=== PATIENT | male | born 1960 | race Caucasian/White ===

== ENCOUNTER 2022-12-10 20:09 | Inpatient (IN) | payer MEDICAID ==
[~2022-12-10] VITALS: Ht 180.3 cm; Wt 65.0 kg
[~2022-12-10 20:09] MED LIST: ASPI-394 PO; BENA-19 PO; BUDE160A3 INH; HYDR-4833 PO; METO-158 PO; METR-344 PO; OXYC10TA44 PO
[2022-12-10 22:23] LABS: Eosinophils # (auto) 0.1 10 ^3/uL (0-0.8); Monocytes # (auto) 0.8 10 ^3/uL (0-1.3); Red Cell Distribution Width 13.8 % (11.8-14.3); White Blood Cell 7.1 10^3/uL (4.4-10.8)
[2022-12-10 22:24] LABS: Basophils # (auto) 0.1 10 ^3/uL (0-0.2); Basophils % (auto) 1.3 % (0.0-2.0); Eosinophils % (auto) 1.2 % (0.0-7.0); Hematocrit 22.3 % (41.0-53.0); Hemoglobin 7.4 g/dL (13.5-17.5); Lymphocytes # (auto) 1.2 10 ^3/uL (0.4-5.4); Lymphocytes % (auto) 17.7 % (10.0-50.0); Mean Corpuscular Hemoglobin 30.5 pg (28.0-32.0); Mean Corpuscular Hgb Conc. 33.2 g/dL (32.0-36.0); Mean Corpuscular Volume 91.8 fL (80.0-100.0); Monocytes % (auto) 11.6 % (0.0-12.0); Neutrophils # (auto) 4.8 10 ^3/uL (1.6-8.6); Neutrophils % (auto) 68.2 % (37.0-80.0); Red Blood Cells 2.42 10^6/uL (4.5-5.90)
[2022-12-10 22:50] LABS: Albumin 4.1 g/dL (3.2-4.8); Alkaline Phosphatase 79 U/L (46-116); Anion Gap 8.8 (5-15); Aspartate Aminotransferase 15 U/L (13-40); BUN/Creatinine Ratio 11.4 (10.0-20.0); Blood Urea Nitrogen 12 mg/dL (9-23); Calcium 10.7 mg/dL (8.5-10.1); Carbon Dioxide 27.2 mmol/L (20-30); Chloride 101 mmol/L (98-107); Glucose 72 mg/dL (74-106); Potassium 3.6 mmol/L (3.5-5.1); Sodium 137 mmol/L (136-145)
[2022-12-10 22:51] LABS: Bilirubin, Total 0.5 mg/dL (0.2-1.0)
[2022-12-10 22:52] LABS: Alanine Aminotransferase 9 U/L (7-40)
[2022-12-11] MEDS ORDERED: IOHEXOL 300 MG/ML 100ML BOTTLE IJ ONE (02:45)
[2022-12-11] MEDS ORDERED: D5W/LACTATED RINGERS 1,000 ML IV ONE (06:45)
[2022-12-11] MEDS ORDERED: DEXTROSE (50%) 50ML SYRG IV ONE (06:45)
[2022-12-11] MEDS ORDERED: ALBUMIN 25% 100 ML IV ONE (06:45)
[2022-12-11] MEDS ORDERED: SODIUM CHLORIDE 0.9% 1,000 ML IV ONE (06:45)
[2022-12-11] MEDS ORDERED: DEXTROSE (50%) 50ML SYRG IV PRN (07:45)
[2022-12-11] MEDS ORDERED: DOCUSATE SOD 100 MG CAP PO PRN (07:45)
[2022-12-11] MEDS ORDERED: ACETAMINOPHEN 325 MG TAB PO PRN (07:45)
[2022-12-11] MEDS ORDERED: D5W/SOD CHLO 0.9% 1,000 ML IV ONE (07:45)
[2022-12-11] MEDS ORDERED: ONDANSETRON HCL 4 MG/2 ML VIAL IV PRN (07:45)
[2022-12-11] MEDS ORDERED: NITROGLYCERIN 0.4 MG SL TAB SL PRN (08:30)
[2022-12-11 10:05] LABS: Albumin 4.3 g/dL (3.2-4.8); Alkaline Phosphatase 73 U/L (46-116); Aspartate Aminotransferase 13 U/L (13-40); BUN/Creatinine Ratio 10.2 (10.0-20.0); Bilirubin, Total 0.5 mg/dL (0.2-1.0); Blood Urea Nitrogen 11 mg/dL (9-23); Calcium 10.7 mg/dL (8.5-10.1); Chloride 103 mmol/L (98-107); Glucose 100 mg/dL (74-106); Potassium 4.2 mmol/L (3.5-5.1); Sodium 138 mmol/L (136-145)
[2022-12-11 10:13] LABS: Alanine Aminotransferase < 9 U/L (7-40)
[2022-12-11] MEDS: InsuLIN REG 1unit/0.01ml Soln (100units/ml) SC SCH ×3 (11:30→22:00)
[2022-12-11] MEDS: ACCU-CHEK COMFORT CURVE STRIP VI SCH ×3 (11:49→22:00)
[2022-12-11 13:19] LABS: Eosinophils # (auto) 0.1 10 ^3/uL (0-0.8); Monocytes # (auto) 0.8 10 ^3/uL (0-1.3); Neutrophils # (auto) 3.3 10 ^3/uL (1.6-8.6); White Blood Cell 5.3 10^3/uL (4.4-10.8)
[2022-12-11 13:21] LABS: Basophils # (auto) 0 10 ^3/uL (0-0.2); Basophils % (auto) 0.6 % (0.0-2.0); Eosinophils % (auto) 1.8 % (0.0-7.0); Hematocrit 18.4 % (41.0-53.0); Lymphocytes # (auto) 1.1 10 ^3/uL (0.4-5.4); Lymphocytes % (auto) 20.6 % (10.0-50.0); Mean Corpuscular Hgb Conc. 32.5 g/dL (32.0-36.0); Mean Corpuscular Volume 92.6 fL (80.0-100.0); Monocytes % (auto) 14.4 % (0.0-12.0); Neutrophils % (auto) 62.6 % (37.0-80.0); Nucleated Red Blood Cells % 0.1 %; Red Blood Cells 1.99 10^6/uL (4.5-5.90); Red Cell Distribution Width 13.9 % (11.8-14.3)
[2022-12-11 14:00] LABS: Platelet Estimate Adequate
[2022-12-11] MEDS ORDERED: HYDROcodone-ACET 10/325MG TAB PO ONE (14:00)
[2022-12-11 19:40] VITALS: PULSE 92; RESP 16; O2SAT 100
[2022-12-11 20:20] VITALS: BP 111/33; PULSE 93; RESP 15; TEMP 98.3
[2022-12-11 20:35] VITALS: BP 113/33; PULSE 90; RESP 14; TEMP 98.4
[2022-12-11 22:45] VITALS: BP 109/46; PULSE 94; RESP 19; TEMP 98.6
[2022-12-11 23:50] VITALS: PULSE 94; RESP 21; O2SAT 100
[2022-12-12] VITALS (35 sets, daily range): BP systolic 97–129; BP diastolic 27–95; PULSE 71–165; RESP 11–35; TEMP 97.8–98.8; O2SAT 89–100
[2022-12-12] MEDS ORDERED: IPRATROPIUM BROM 0.5 MG/2.5ML INH SOL NEB ONE
[2022-12-12] MEDS ORDERED: ALBUTEROL SULF 2.5 MG/0.5ML(0.5%) NEB SOLN NEB ONE
[2022-12-12] MEDS ORDERED: METOPROLOL TARTRATE 25 MG TAB PO ONE (02:00)
[2022-12-12] MEDS: InsuLIN REG 1unit/0.01ml Soln (100units/ml) SC SCH ×5 (06:29→22:00)
[2022-12-12] MEDS: ACCU-CHEK COMFORT CURVE STRIP VI SCH ×5 (06:30→22:10)
[2022-12-12 06:47] LABS: Basophils # (auto) 0.1 10 ^3/uL (0-0.2); Basophils % (auto) 1.2 % (0.0-2.0); Eosinophils # (auto) 0.2 10 ^3/uL (0-0.8); Eosinophils % (auto) 3.2 % (0.0-7.0); Hematocrit 25.4 % (41.0-53.0); Hemoglobin 8.5 g/dL (13.5-17.5); Lymphocytes # (auto) 0.9 10 ^3/uL (0.4-5.4); Lymphocytes % (auto) 17.3 % (10.0-50.0); Mean Corpuscular Hemoglobin 30.9 pg (28.0-32.0); Mean Corpuscular Hgb Conc. 33.7 g/dL (32.0-36.0); Mean Corpuscular Volume 91.8 fL (80.0-100.0); Monocytes # (auto) 0.7 10 ^3/uL (0-1.3); Monocytes % (auto) 12.7 % (0.0-12.0); Neutrophils # (auto) 3.6 10 ^3/uL (1.6-8.6); Neutrophils % (auto) 65.6 % (37.0-80.0); Nucleated Red Blood Cells % 0.1 %; Red Blood Cells 2.76 10^6/uL (4.5-5.90); Red Cell Distribution Width 13.7 % (11.8-14.3); White Blood Cell 5.5 10^3/uL (4.4-10.8)
[2022-12-12 07:01] LABS: % Iron Saturation 25.4 % (20-55)
[2022-12-12 07:02] LABS: Albumin 3.8 g/dL (3.2-4.8); Alkaline Phosphatase 65 U/L (46-116); Anion Gap 6.8 (5-15); Aspartate Aminotransferase 9 U/L (13-40); BUN/Creatinine Ratio 8.3 (10.0-20.0); Blood Urea Nitrogen 8 mg/dL (9-23); Calcium 10.5 mg/dL (8.7-10.4); Carbon Dioxide 28.2 mmol/L (20-30); Chloride 106 mmol/L (98-107); Glucose 77 mg/dL (74-106); Potassium 3.7 mmol/L (3.5-5.1); Sodium 141 mmol/L (136-145)
[2022-12-12 07:03] LABS: Alanine Aminotransferase < 9 U/L (7-40); Bilirubin, Total 0.9 mg/dL (0.2-1.0); Total Protein 6.2 g/dL (5.7-8.2)
[2022-12-12 07:14] LABS: Ferritin 719.2 ng/mL (22-322)
[2022-12-12 07:30] LABS: Folate (Folic Acid) 10.6 ng/mL (>5.38)
[2022-12-12] MEDS: PANTOPRAZOLE 40 MG/10 ML VIAL INJ IV SCH (08:50)
[2022-12-12] MEDS ORDERED: METOPROLOL TARTRATE 25 MG TAB PO SCH (10:00)
[2022-12-12] MEDS: ALBUTEROL SULF 2.5 MG/0.5ML(0.5%) NEB SOLN NEB PRN (11:49)
[2022-12-12] MEDS ORDERED: LABETALOL HCL 5 MG/ML 4ML SYRINGE IV ONE (12:45)
[2022-12-12] MEDS ORDERED: ALPRAZolam 0.5 MG TAB PO PRN (12:45)
[2022-12-12] MEDS ORDERED: METOPROLOL TARTRATE 1MG/1ML-5ML VIAL IV ONE (13:15)
[2022-12-12] MEDS: HYDROcodone-ACET 5/325MG TAB PO PRN ×2 (14:21→18:34)
[2022-12-12] MEDS: dilTIAZem 125mg/125ml BAG KIT 125 ML IV SCH (14:51)
[2022-12-12] MEDS: POTASSIUM CHL 20MEQ/100ML 100 ML IV SCH ×2 (17:48→20:13)
[2022-12-12] MEDS ORDERED: HYDROcodone-ACET 10/325MG TAB PO PRN (19:00)
[2022-12-12 19:43] LABS: Magnesium 1.6 mg/dL (1.6-2.6)
[2022-12-12] MEDS: ATORVASTATIN 20 MG TAB PO SCH (22:00)
[2022-12-12] MEDS: METOPROLOL TARTRATE 50 MG TAB PO SCH (22:08)
[2022-12-13] VITALS (30 sets, daily range): BP systolic 98–111; BP diastolic 35–52; PULSE 62–86; RESP 13–31; TEMP 97–98.5; O2SAT 92–100
[2022-12-13] MEDS: dilTIAZem 125mg/125ml BAG KIT 125 ML IV SCH (03:10)
[2022-12-13] MEDS: MORPHINE SULFATE INJ 2 MG/ml SYRG IV PRN ×4 (03:45→21:41)
[2022-12-13] MEDS: ALBUTEROL SULF 2.5 MG/0.5ML(0.5%) NEB SOLN NEB PRN ×3 (04:24→21:01)
[2022-12-13] MEDS: InsuLIN REG 1unit/0.01ml Soln (100units/ml) SC SCH ×4 (06:37→21:47)
[2022-12-13] MEDS: ACCU-CHEK COMFORT CURVE STRIP VI SCH ×4 (06:37→21:42)
[2022-12-13] MEDS: PANTOPRAZOLE 40 MG/10 ML VIAL INJ IV SCH (10:08)
[2022-12-13] MEDS: METOPROLOL TARTRATE 50 MG TAB PO SCH ×2 (10:09→21:39)
[2022-12-13] MEDS: POTASSIUM CHL 20 Meq TABLET PO SCH (11:15)
[2022-12-13] MEDS: FUROSEMIDE 20 MG/2 ML VIAL IV SCH (11:15)
[2022-12-13] MEDS: methIMAzole 5 MG TAB PO SCH ×2 (14:00→21:41)
[2022-12-13 18:50] LABS: Basophils # (auto) 0 10 ^3/uL (0-0.2); Basophils % (auto) 0.5 % (0.0-2.0); Eosinophils # (auto) 0.3 10 ^3/uL (0-0.8); Eosinophils % (auto) 4.3 % (0.0-7.0); Hematocrit 22.6 % (41.0-53.0); Hemoglobin 7.6 g/dL (13.5-17.5); Lymphocytes # (auto) 1.4 10 ^3/uL (0.4-5.4); Lymphocytes % (auto) 17.3 % (10.0-50.0); Mean Corpuscular Hemoglobin 30.5 pg (28.0-32.0); Mean Corpuscular Hgb Conc. 33.5 g/dL (32.0-36.0); Mean Corpuscular Volume 91.2 fL (80.0-100.0); Monocytes % (auto) 12.4 % (0.0-12.0); Neutrophils # (auto) 5.2 10 ^3/uL (1.6-8.6); Neutrophils % (auto) 65.5 % (37.0-80.0); Red Blood Cells 2.48 10^6/uL (4.5-5.90); Red Cell Distribution Width 13.6 % (11.8-14.3)
[2022-12-13 19:14] LABS: Albumin 3.4 g/dL (3.2-4.8); Alkaline Phosphatase 59 U/L (46-116); Anion Gap 3.4 (5-15); Aspartate Aminotransferase < 8 U/L (13-40); BUN/Creatinine Ratio 10.2 (10.0-20.0); Blood Urea Nitrogen 13 mg/dL (9-23); Carbon Dioxide 30.6 mmol/L (20-30); Chloride 104 mmol/L (98-107); Glucose 121 mg/dL (74-106); Magnesium 1.4 mg/dL (1.6-2.6); Potassium 4.4 mmol/L (3.5-5.1); Sodium 138 mmol/L (136-145)
[2022-12-13 19:16] LABS: Alanine Aminotransferase < 9 U/L (7-40); Bilirubin, Total 0.3 mg/dL (0.2-1.0); Total Protein 5.8 g/dL (5.7-8.2)
[2022-12-13] MEDS: ATORVASTATIN 20 MG TAB PO SCH (21:47)
[2022-12-13] MEDS: MAGNESIUM SULFATE 1GM/100ML 100 ML IV SCH ×2 (22:33→23:34)
[2022-12-14] VITALS (12 sets, daily range): BP systolic 105–125; BP diastolic 32–45; PULSE 71–88; RESP 17–24; TEMP 97.8–98.2; O2SAT 94–100
[2022-12-14] MEDS: MORPHINE SULFATE INJ 2 MG/ml SYRG IV PRN ×3 (05:03→18:28)
[2022-12-14 05:53] LABS: Basophils # (auto) 0 10 ^3/uL (0-0.2); Basophils % (auto) 0.4 % (0.0-2.0); Eosinophils # (auto) 0.3 10 ^3/uL (0-0.8); Eosinophils % (auto) 5.8 % (0.0-7.0); Hematocrit 25.2 % (41.0-53.0); Hemoglobin 8.4 g/dL (13.5-17.5); Lymphocytes # (auto) 1.1 10 ^3/uL (0.4-5.4); Lymphocytes % (auto) 19.4 % (10.0-50.0); Mean Corpuscular Hemoglobin 30.3 pg (28.0-32.0); Mean Corpuscular Hgb Conc. 33.3 g/dL (32.0-36.0); Mean Corpuscular Volume 91.1 fL (80.0-100.0); Monocytes # (auto) 0.7 10 ^3/uL (0-1.3); Monocytes % (auto) 12.9 % (0.0-12.0); Neutrophils # (auto) 3.6 10 ^3/uL (1.6-8.6); Neutrophils % (auto) 61.5 % (37.0-80.0); Nucleated Red Blood Cells % 0.1 %; Red Blood Cells 2.77 10^6/uL (4.5-5.90); Red Cell Distribution Width 13.8 % (11.8-14.3); White Blood Cell 5.8 10^3/uL (4.4-10.8)
[2022-12-14 06:09] LABS: Albumin 3.5 g/dL (3.2-4.8); Alkaline Phosphatase 58 U/L (46-116); Anion Gap 3.9 (5-15); Aspartate Aminotransferase < 8 U/L (13-40); Bilirubin, Total 0.4 mg/dL (0.2-1.0); Blood Urea Nitrogen 14 mg/dL (9-23); Calcium 10.3 mg/dL (8.7-10.4); Carbon Dioxide 31.1 mmol/L (20-30); Chloride 104 mmol/L (98-107); Glucose 96 mg/dL (74-106); Magnesium 2.1 mg/dL (1.6-2.6); Potassium 4.1 mmol/L (3.5-5.1); Sodium 139 mmol/L (136-145); Total Protein 5.8 g/dL (5.7-8.2)
[2022-12-14] MEDS: methIMAzole 5 MG TAB PO SCH ×3 (06:18→21:55)
[2022-12-14] MEDS: ACCU-CHEK COMFORT CURVE STRIP VI SCH ×4 (06:18→22:00)
[2022-12-14] MEDS: InsuLIN REG 1unit/0.01ml Soln (100units/ml) SC SCH ×4 (06:22→22:00)
[2022-12-14 07:19] LABS: Alanine Aminotransferase < 9 U/L (7-40)
[2022-12-14 08:17] LABS: BUN/Creatinine Ratio 11.8 (10.0-20.0)
[2022-12-14] MEDS: PANTOPRAZOLE 40 MG/10 ML VIAL INJ IV SCH (09:56)
[2022-12-14] MEDS: FUROSEMIDE 20 MG/2 ML VIAL IV SCH (09:57)
[2022-12-14] MEDS: POTASSIUM CHL 20 Meq TABLET PO SCH (09:57)
[2022-12-14] MEDS: METOPROLOL TARTRATE 50 MG TAB PO SCH ×2 (09:57→21:59)
[2022-12-14] MEDS: ALBUTEROL SULF 2.5 MG/0.5ML(0.5%) NEB SOLN NEB PRN (10:48)
[2022-12-14] MEDS: ATORVASTATIN 20 MG TAB PO SCH ×2 (21:55→22:00)
[2022-12-15] VITALS (12 sets, daily range): BP systolic 108–119; BP diastolic 43–51; PULSE 67–82; RESP 17–20; TEMP 97.6–98.4; O2SAT 98–100
[2022-12-15] MEDS: MORPHINE SULFATE INJ 2 MG/ml SYRG IV PRN ×4 (00:30→22:55)
[2022-12-15] MEDS: methIMAzole 5 MG TAB PO SCH ×3 (05:40→22:51)
[2022-12-15 05:47] LABS: Basophils # (auto) 0 10 ^3/uL (0-0.2); Basophils % (auto) 0.7 % (0.0-2.0); Eosinophils # (auto) 0.4 10 ^3/uL (0-0.8); Eosinophils % (auto) 6.2 % (0.0-7.0); Hematocrit 26.5 % (41.0-53.0); Hemoglobin 8.6 g/dL (13.5-17.5); Lymphocytes # (auto) 1.2 10 ^3/uL (0.4-5.4); Lymphocytes % (auto) 18.8 % (10.0-50.0); Mean Corpuscular Hemoglobin 30.5 pg (28.0-32.0); Mean Corpuscular Hgb Conc. 32.4 g/dL (32.0-36.0); Mean Corpuscular Volume 93.9 fL (80.0-100.0); Monocytes # (auto) 0.9 10 ^3/uL (0-1.3); Monocytes % (auto) 13.1 % (0.0-12.0); Neutrophils % (auto) 61.2 % (37.0-80.0); Nucleated Red Blood Cells % 0.2 %; Red Blood Cells 2.82 10^6/uL (4.5-5.90); Red Cell Distribution Width 13.9 % (11.8-14.3); White Blood Cell 6.5 10^3/uL (4.4-10.8)
[2022-12-15 05:56] LABS: Chloride 103 mmol/L (98-107); Potassium 4.5 mmol/L (3.5-5.1); Sodium 139 mmol/L (136-145)
[2022-12-15 05:57] LABS: Anion Gap 5.6 (5-15); Carbon Dioxide 30.4 mmol/L (20-30)
[2022-12-15 05:58] LABS: Calcium 10.1 mg/dL (8.5-10.1)
[2022-12-15 06:02] LABS: Glucose 88 mg/dL (74-106)
[2022-12-15 06:03] LABS: BUN/Creatinine Ratio 13.3 (10.0-20.0); Blood Urea Nitrogen 16 mg/dL (9-23); INR 1.12 (0.9-1.15); Partial Thromboplastin Time 23.4 SEC (24.5-34.5); Prothrombin Time 11.7 sec (9.3-11.8)
[2022-12-15] MEDS: InsuLIN REG 1unit/0.01ml Soln (100units/ml) SC SCH ×4 (06:29→22:00)
[2022-12-15] MEDS: ACCU-CHEK COMFORT CURVE STRIP VI SCH ×4 (06:29→22:00)
[2022-12-15] MEDS: ALBUTEROL SULF 2.5 MG/0.5ML(0.5%) NEB SOLN NEB PRN (09:00)
[2022-12-15] MEDS: PANTOPRAZOLE 40 MG/10 ML VIAL INJ IV SCH (09:31)
[2022-12-15] MEDS: POTASSIUM CHL 20 Meq TABLET PO SCH (09:31)
[2022-12-15] MEDS: METOPROLOL TARTRATE 50 MG TAB PO SCH ×2 (09:31→22:51)
[2022-12-15] MEDS: FUROSEMIDE 20 MG/2 ML VIAL IV SCH (09:32)
[2022-12-15] MEDS: HYDROcodone-ACET 10/325MG TAB PO PRN ×2 (09:33→11:09)
[2022-12-15] MEDS ORDERED: MIDAZOLAM HCL 2MG/2ML 2ml VIAL (1mg/ml) ONE (14:44)
[2022-12-15] MEDS ORDERED: fentaNYL CITRATE 100 MCG/2 ML VL ONE (14:44)
[2022-12-15] MEDS ORDERED: PROPOFOL 10 MG/ML 20 ML IV ONE (15:01)
[2022-12-15] MEDS ORDERED: ONDANSETRON HCL 4 MG/2 ML VIAL ONE (15:01)
[2022-12-15] MEDS: ATORVASTATIN 20 MG TAB PO SCH (22:52)
[2022-12-16 01:06] LABS: AFP Serum Tumor Marker <1.8 ng/mL (0.0-8.4); PSA Free 0.23 ng/mL; Prostate Specific Antigen 1.2 ng/mL (0.0-4.0)
[2022-12-16 05:00] VITALS: BP 118/47; PULSE 69; RESP 18; TEMP 98; O2SAT 100
[2022-12-16] MEDS: methIMAzole 5 MG TAB PO SCH (05:47)
[2022-12-16] MEDS: MORPHINE SULFATE INJ 2 MG/ml SYRG IV PRN (05:48)
[2022-12-16] MEDS: InsuLIN REG 1unit/0.01ml Soln (100units/ml) SC SCH ×2 (06:06→11:30)
[2022-12-16] MEDS: ACCU-CHEK COMFORT CURVE STRIP VI SCH ×2 (06:06→11:30)
[2022-12-16 06:49] LABS: Chloride 100 mmol/L (98-107); Potassium 4.5 mmol/L (3.5-5.1); Sodium 138 mmol/L (136-145)
[2022-12-16 06:50] LABS: Anion Gap 4.1 (5-15); Calcium 10.2 mg/dL (8.7-10.4); Carbon Dioxide 33.9 mmol/L (20-30)
[2022-12-16 06:54] LABS: Basophils # (auto) 0 10 ^3/uL (0-0.2); Basophils % (auto) 0.6 % (0.0-2.0); Eosinophils # (auto) 0.4 10 ^3/uL (0-0.8); Eosinophils % (auto) 6.2 % (0.0-7.0); Hematocrit 27.2 % (41.0-53.0); Lymphocytes # (auto) 1.2 10 ^3/uL (0.4-5.4); Lymphocytes % (auto) 16.2 % (10.0-50.0); Mean Corpuscular Hemoglobin 30.3 pg (28.0-32.0); Mean Corpuscular Volume 91.9 fL (80.0-100.0); Monocytes % (auto) 14.2 % (0.0-12.0); Neutrophils # (auto) 4.5 10 ^3/uL (1.6-8.6); Neutrophils % (auto) 62.8 % (37.0-80.0); Red Blood Cells 2.96 10^6/uL (4.5-5.90); Red Cell Distribution Width 13.5 % (11.8-14.3); White Blood Cell 7.1 10^3/uL (4.4-10.8)
[2022-12-16 06:55] LABS: BUN/Creatinine Ratio 14.2 (10.0-20.0); Blood Urea Nitrogen 19 mg/dL (9-23); Glucose 103 mg/dL (74-106)
[2022-12-16 08:00] VITALS: PULSE 66; PULSE 80; RESP 18; O2SAT 98
[2022-12-16 09:20] VITALS: BP 114/54; PULSE 66; RESP 19; TEMP 98.6; O2SAT 98
[2022-12-16] MEDS ORDERED: METH-552 PO (09:30)
[2022-12-16] MEDS ORDERED: FER325T PO (09:34)
[2022-12-16] MEDS ORDERED: MULTTAB99 PO (09:41)
[2022-12-16 10:00] VITALS: O2SAT 98
[2022-12-16] MEDS: POTASSIUM CHL 20 Meq TABLET PO SCH (10:00)
[2022-12-16] MEDS: PANTOPRAZOLE 40 MG/10 ML VIAL INJ IV SCH (10:03)
[2022-12-16] MEDS: METOPROLOL TARTRATE 50 MG TAB PO SCH (10:04)
[2022-12-16 12:14] VITALS: BP 122/65; PULSE 66; RESP 18; TEMP 98.1; O2SAT 98
[2022-12-16 13:00] VITALS: BP 108/33; PULSE 57; RESP 17; TEMP 98.5; O2SAT 100
== END 2022-12-16 13:45 | disposition home or self-care (01) | DRG 663 ==
LOC: ER 20:09 → TELE 12-11 08:27 → TELE-EAST 12-11 20:49 → TELE-WESTW 12-11 21:26 → ICU WEST 12-12 16:51 → DOU IN ICU 12-13 08:48 → TELE-EAST 12-13 22:00
PROVIDERS: ADMIT Nurse Practitioner Family; ATTEND Internal Medicine Geriatric Medicine
PROC: 30233N1 Transfusion of Nonautologous Red Blood Cells into Peripheral Vein, Percutaneous Approach (ICD-10-PCS; principal; 2022-12-11)
PROC: 0DB98ZX Excision of Duodenum, Via Natural or Artificial Opening Endoscopic, Diagnostic (ICD-10-PCS; 2022-12-15)
PROC: 0DB68ZX Excision of Stomach, Via Natural or Artificial Opening Endoscopic, Diagnostic (ICD-10-PCS; 2022-12-15)
DX: D64.9 Anemia, unspecified (principal); J96.10 Chronic respiratory failure, unspecified whether with hypoxia or hypercapnia; I50.32 Chronic diastolic (congestive) heart failure; Z99.81 Dependence on supplemental oxygen; I48.20 Chronic atrial fibrillation, unspecified; E03.9 Hypothyroidism, unspecified; E05.90 Thyrotoxicosis, unspecified without thyrotoxic crisis or storm; E83.52 Hypercalcemia; E16.2 Hypoglycemia, unspecified; N18.9 Chronic kidney disease, unspecified; G89.4 Chronic pain syndrome; R60.0 Localized edema; E78.00 Pure hypercholesterolemia, unspecified; J44.9 Chronic obstructive pulmonary disease, unspecified; F41.9 Anxiety disorder, unspecified; K29.70 Gastritis, unspecified, without bleeding; K44.9 Diaphragmatic hernia without obstruction or gangrene; Z88.0 Allergy status to penicillin; Z88.1 Allergy status to other antibiotic agents; Z80.1 Family history of malignant neoplasm of trachea, bronchus and lung; Z68.20 Body mass index [BMI] 20.0-20.9, adult
CPT/HCPCS: 36415; 71045; 71260; 74177; 80048; 80053; 80061; 82105; 82270; 82378; 82607; 82728; 82746; 82962; 83036; 83540; 83550; 83735; 83880; 84154; 84443; 85025; 85610; 85730; 86301; 86850; 86900; 86901; 86920; 87081; 93005; 93306; 93970; 94640; 96361; 96374; C9113; G0378; J2250; J2405; J2704; J3480; J3490; P9047

== ENCOUNTER → 2023-06-14 | Outpatient (CLI) | payer MEDICAID ==
[~2023-06-14] MED LIST changes: +ALBUTEROL SULF 2.5 MG/0.5ML(0.5%) NEB SOLN ONE; +FER325T PO; +METH-552 PO; +MULTTAB99 PO
== END | disposition home or self-care (01) ==
LOC: XYW 09:15
PROVIDERS: ATTEND Internal Medicine Pulmonary Disease
DX: J44.9 Chronic obstructive pulmonary disease, unspecified (principal)
CPT/HCPCS: 94060; 94727; 94729

== ENCOUNTER 2023-10-26 17:59 | Inpatient (IN) | payer MEDICAID ==
[~2023-10-26] VITALS: Ht 180.3 cm; Wt 81.0 kg
[~2023-10-26 17:59] MED LIST changes: -ALBUTEROL SULF 2.5 MG/0.5ML(0.5%) NEB SOLN ONE; -BENA-19 PO; +BENA10TA90 PO
[2023-10-26 20:03] LABS: Basophils # (auto) 0 10 ^3/uL (0-0.2); Basophils % (auto) 0.6 % (0.0-2.0); Eosinophils # (auto) 0.1 10 ^3/uL (0-0.8); Eosinophils % (auto) 2.4 % (0.0-7.0); Hematocrit 32.5 % (41.0-53.0); Hemoglobin 10.7 g/dL (13.5-17.5); Lymphocytes # (auto) 1.3 10 ^3/uL (0.4-5.4); Lymphocytes % (auto) 24.2 % (10.0-50.0); Mean Corpuscular Hemoglobin 29.7 pg (28.0-32.0); Mean Corpuscular Hgb Conc. 32.8 g/dL (32.0-36.0); Mean Corpuscular Volume 90.7 fL (80.0-100.0); Monocytes # (auto) 0.7 10 ^3/uL (0-1.3); Monocytes % (auto) 13.9 % (0.0-12.0); Neutrophils # (auto) 3.1 10 ^3/uL (1.6-8.6); Neutrophils % (auto) 58.9 % (37.0-80.0); Nucleated Red Blood Cells % 0.1 %; Red Blood Cells 3.59 10^6/uL (4.5-5.90); Red Cell Distribution Width 13.5 % (11.8-14.3); White Blood Cell 5.3 10^3/uL (4.4-10.8)
[2023-10-26 20:33] LABS: Alanine Aminotransferase 22 U/L (7-40); Albumin 4.2 g/dL (3.2-4.8); Alkaline Phosphatase 102 U/L (46-116); Anion Gap 6 (5-15); Aspartate Aminotransferase 20 U/L (13-40); BUN/Creatinine Ratio 21.5 (10.0-20.0); Bilirubin, Total 0.4 mg/dL (0.2-1.0); Blood Urea Nitrogen 28 mg/dL (9-23); Calcium 10.3 mg/dL (8.5-10.1); Carbon Dioxide 27 mmol/L (20-30); Chloride 108 mmol/L (98-107); Glucose 95 mg/dL (74-106); Potassium 4.7 mmol/L (3.5-5.1); Sodium 141 mmol/L (136-145); Total Protein 6.3 g/dL (5.7-8.2)
[2023-10-26] MEDS: IPRATROPIUM BROM 0.5 MG/2.5ML INH SOL NEB ONE (21:33)
[2023-10-26] MEDS: ALBUTEROL SULF 2.5 MG/0.5ML(0.5%) NEB SOLN NEB ONE (21:33)
[2023-10-26] MEDS ORDERED: AZITHROMYCIN 500MG/ 250ML 250 ML IV ONE (22:30)
[2023-10-26] MEDS ORDERED: ACETAMINOPHEN 325 MG TAB PO PRN (22:30)
[2023-10-26] MEDS ORDERED: TEMAZEPAM 15 MG CAP PO PRN (22:30)
[2023-10-26] MEDS ORDERED: NITROGLYCERIN 0.4 MG SL TAB SL PRN (23:00)
[2023-10-26] MEDS: DexAMETHasone SOD PHOS 10MG/1ML VIAL INJ IM ONE (23:35)
[2023-10-26] MEDS: cefTRIAXone 1GM/50ML D5W 50 ML IV ONE (23:35)
[2023-10-27] VITALS (11 sets, daily range): BP systolic 113–134; BP diastolic 53–75; PULSE 20–160; RESP 16–22; TEMP 97.5–98.8; O2SAT 98–100
[2023-10-27] MEDS ORDERED: HYDR-4072 PO (03:27)
[2023-10-27] MEDS ORDERED: FLUT1AER3 IN (03:27)
[2023-10-27] MEDS ORDERED: CHOL20007 PO (03:27)
[2023-10-27] MEDS ORDERED: ALBU1NEB5 IN (03:27)
[2023-10-27] MEDS ORDERED: ALBU108A5 IN (03:27)
[2023-10-27] MEDS: AMIODARONE BOLUS KIT 100 ML IV ONE (04:18)
[2023-10-27] MEDS: dilTIAZem 25 MG/5 ML VIAL IV ONE ×2 (04:29→04:51)
[2023-10-27] MEDS: HYDROcodone-ACET 10/325MG TAB PO ONE (04:30)
[2023-10-27] MEDS: AMIODARONE 450mg/250ml AE 250 ML IV SCH ×3 (04:52→16:22)
[2023-10-27 04:57] LABS: Basophils # (auto) 0 10 ^3/uL (0-0.2); Basophils % (auto) 0.3 % (0.0-2.0); Eosinophils # (auto) 0 10 ^3/uL (0-0.8); Eosinophils % (auto) 0.3 % (0.0-7.0); Hematocrit 30.8 % (41.0-53.0); Hemoglobin 10.1 g/dL (13.5-17.5); Lymphocytes # (auto) 0.3 10 ^3/uL (0.4-5.4); Lymphocytes % (auto) 7.3 % (10.0-50.0); Mean Corpuscular Hemoglobin 29.7 pg (28.0-32.0); Mean Corpuscular Hgb Conc. 32.6 g/dL (32.0-36.0); Mean Corpuscular Volume 90.8 fL (80.0-100.0); Monocytes # (auto) 0.1 10 ^3/uL (0-1.3); Monocytes % (auto) 2.1 % (0.0-12.0); Neutrophils # (auto) 4.3 10 ^3/uL (1.6-8.6); Red Blood Cells 3.39 10^6/uL (4.5-5.90); Red Cell Distribution Width 13.4 % (11.8-14.3); White Blood Cell 4.8 10^3/uL (4.4-10.8)
[2023-10-27 05:13] LABS: Alanine Aminotransferase 22 U/L (7-40); Albumin 4.3 g/dL (3.2-4.8); Alkaline Phosphatase 100 U/L (46-116); Anion Gap 8 (5-15); Aspartate Aminotransferase 18 U/L (13-40); BUN/Creatinine Ratio 19.1 (10.0-20.0); Bilirubin, Total 0.6 mg/dL (0.2-1.0); Blood Urea Nitrogen 26 mg/dL (9-23); Calcium 10.5 mg/dL (8.5-10.1); Carbon Dioxide 26 mmol/L (20-30); Chloride 105 mmol/L (98-107); Glucose 161 mg/dL (74-106); Potassium 4.4 mmol/L (3.5-5.1); Sodium 139 mmol/L (136-145); Total Protein 6.8 g/dL (5.7-8.2)
[2023-10-27] MEDS: methylPREDNISolone SOD SUCC 40 MG/ML VL IV SCH ×2 (09:53→20:20)
[2023-10-27] MEDS ORDERED: AZITHROMYCIN 500MG/ 250ML 250 ML IV SCH (10:00)
[2023-10-27] MEDS: METOPROLOL TARTRATE 25 MG TAB PO SCH (10:01)
[2023-10-27] MEDS: ASPirin 81 mg TAB PO SCH (10:03)
[2023-10-27] MEDS ORDERED: AZITHROMYCIN 500MG/ 250ML 250 ML IV ONE (13:00)
[2023-10-27] MEDS: ENOXAPARIN SOD 40 MG/0.4 ML SYRINGE SC ONE ×2 (13:30→19:30)
[2023-10-27] MEDS ORDERED: AMIODARONE 450mg/250ml AE 250 ML IV SCH (13:45)
[2023-10-27] MEDS: methylPREDNISolone SOD SUCC 40 MG/ML VL IV ONE (16:27)
[2023-10-27] MEDS: DOXYCYCLINE 100MG/250ML 250 ML IV SCH (16:38)
[2023-10-27] MEDS: HYDROcodone-ACET 10/325MG TAB PO SCH (17:06)
[2023-10-27] MEDS: MORPHINE SULFATE INJ 2 MG/ml SYRG IV PRN (20:19)
[2023-10-27] MEDS: IPRATROPIUM BROM 0.5 MG/2.5ML INH SOL NEB PRN (21:02)
[2023-10-27] MEDS: ALBUTEROL SULF 2.5 MG/0.5ML(0.5%) NEB SOLN NEB PRN (21:02)
[2023-10-28] VITALS (15 sets, daily range): BP systolic 107–134; BP diastolic 59–71; PULSE 55–127; RESP 19–24; TEMP 97.5–98.4; O2SAT 94–100
[2023-10-28 09:01] LABS: Basophils # (auto) 0 10 ^3/uL (0-0.2); Basophils % (auto) 0.2 % (0.0-2.0); Eosinophils # (auto) 0 10 ^3/uL (0-0.8); Hematocrit 33.1 % (41.0-53.0); Hemoglobin 10.8 g/dL (13.5-17.5); Lymphocytes # (auto) 0.4 10 ^3/uL (0.4-5.4); Lymphocytes % (auto) 5.9 % (10.0-50.0); Mean Corpuscular Hemoglobin 29.8 pg (28.0-32.0); Mean Corpuscular Hgb Conc. 32.5 g/dL (32.0-36.0); Mean Corpuscular Volume 91.7 fL (80.0-100.0); Monocytes # (auto) 0.4 10 ^3/uL (0-1.3); Monocytes % (auto) 6.3 % (0.0-12.0); Neutrophils % (auto) 87.6 % (37.0-80.0); Nucleated Red Blood Cells % 0.1 %; Red Blood Cells 3.61 10^6/uL (4.5-5.90); Red Cell Distribution Width 13.6 % (11.8-14.3); White Blood Cell 6.9 10^3/uL (4.4-10.8)
[2023-10-28 09:10] LABS: Chloride 104 mmol/L (98-107); Potassium 5.4 mmol/L (3.5-5.1)
[2023-10-28 09:11] LABS: Anion Gap 6 (5-15); Carbon Dioxide 24 mmol/L (20-30)
[2023-10-28 09:12] LABS: Calcium 9.9 mg/dL (8.5-10.1)
[2023-10-28 09:17] LABS: BUN/Creatinine Ratio 18.8 (10.0-20.0); Blood Urea Nitrogen 30 mg/dL (9-23); Glucose 209 mg/dL (74-106); Sodium 134 mmol/L (136-145)
[2023-10-28] MEDS ORDERED: AZITHROMYCIN 500MG/ 250ML 250 ML IV SCH (10:00)
[2023-10-28] MEDS: ENOXAPARIN SOD 40 MG/0.4 ML SYRINGE SC SCH (10:58)
[2023-10-28] MEDS: MORPHINE SULFATE INJ 2 MG/ml SYRG IV PRN ×2 (13:11→18:33)
[2023-10-28] MEDS: methIMAzole 5 MG TAB PO ONE (18:34)
[2023-10-28] MEDS: METOPROLOL TARTRATE 25 MG TAB PO ONE (18:34)
[2023-10-28] MEDS: LORazepam 2MG/ML-1ML VIAL IV PRN (20:37)
[2023-10-28] MEDS: METOPROLOL TARTRATE 25 MG TAB PO SCH (21:44)
[2023-10-28] MEDS: ENOXAPARIN SOD 80 MG/0.8ML SYRINGE SC SCH (22:00)
[2023-10-29] VITALS (19 sets, daily range): BP systolic 104–136; BP diastolic 64–83; PULSE 62–138; RESP 17–24; TEMP 97.5–98.7; O2SAT 95–100
[2023-10-29 06:09] LABS: Basophils # (auto) 0 10 ^3/uL (0-0.2); Basophils % (auto) 0.1 % (0.0-2.0); Eosinophils # (auto) 0 10 ^3/uL (0-0.8); Hematocrit 31.8 % (41.0-53.0); Hemoglobin 10.6 g/dL (13.5-17.5); Lymphocytes # (auto) 0.4 10 ^3/uL (0.4-5.4); Lymphocytes % (auto) 7.6 % (10.0-50.0); Mean Corpuscular Hemoglobin 29.9 pg (28.0-32.0); Mean Corpuscular Hgb Conc. 33.4 g/dL (32.0-36.0); Mean Corpuscular Volume 89.3 fL (80.0-100.0); Monocytes # (auto) 0.2 10 ^3/uL (0-1.3); Monocytes % (auto) 4.5 % (0.0-12.0); Neutrophils # (auto) 4.2 10 ^3/uL (1.6-8.6); Neutrophils % (auto) 87.8 % (37.0-80.0); Nucleated Red Blood Cells % 0.1 %; Red Blood Cells 3.56 10^6/uL (4.5-5.90); Red Cell Distribution Width 13.1 % (11.8-14.3); White Blood Cell 4.8 10^3/uL (4.4-10.8)
[2023-10-29 06:22] LABS: Anion Gap 8 (5-15); Calcium 9.9 mg/dL (8.7-10.4); Carbon Dioxide 26 mmol/L (20-30); Chloride 101 mmol/L (98-107); Potassium 5.2 mmol/L (3.5-5.1); Sodium 135 mmol/L (136-145)
[2023-10-29 06:28] LABS: BUN/Creatinine Ratio 29.9 (10.0-20.0); Glucose 207 mg/dL (74-106)
[2023-10-29 06:29] LABS: Blood Urea Nitrogen 53 mg/dL (9-23)
[2023-10-29] MEDS: ALBUTEROL SULF 2.5 MG/0.5ML(0.5%) NEB SOLN NEB SCH (09:43)
[2023-10-29] MEDS: IPRATROPIUM BROM 0.5 MG/2.5ML INH SOL NEB SCH (09:44)
[2023-10-29] MEDS: InsuLIN REG 1unit/0.01ml Soln (100units/ml) IV ONE (10:15)
[2023-10-29] MEDS: DEXTROSE (50%) 50ML SYRG IV ONE (10:15)
[2023-10-29] MEDS: methIMAzole 5 MG TAB PO SCH (10:37)
[2023-10-29] MEDS: METOPROLOL TARTRATE 25 MG TAB PO SCH (10:38)
[2023-10-29] MEDS: SODIUM ZIRCONIUM CYCL 10 GM PAK PO ONE (13:15)
[2023-10-29] MEDS: methylPREDNISolone SOD SUCC 40 MG/ML VL IV SCH (14:00)
[2023-10-29] MEDS: LEVALBUTEROL HCL 1.25 MG/3 ML NEB NEB SCH (14:42)
[2023-10-29] MEDS: AMIODARONE HCL 200 MG TAB PO ONE (16:04)
[2023-10-29] MEDS: AMIODARONE HCL 200 MG TAB PO SCH (20:59)
[2023-10-29] MEDS: BUDESONIDE (INHALATION) 0.5 MG/2 ML NEB NEB SCH (22:08)
[2023-10-30] VITALS (24 sets, daily range): BP systolic 106–136; BP diastolic 44–83; PULSE 98–149; RESP 20–24; TEMP 97.6–99; O2SAT 93–100
[2023-10-30] MEDS: ALBUTEROL SULF 2.5 MG/0.5ML(0.5%) NEB SOLN NEB ONE (06:55)
[2023-10-30 07:45] LABS: Basophils # (auto) 0 10 ^3/uL (0-0.2); Eosinophils # (auto) 0 10 ^3/uL (0-0.8); Hematocrit 34.3 % (41.0-53.0); Hemoglobin 11.1 g/dL (13.5-17.5); Lymphocytes # (auto) 0.4 10 ^3/uL (0.4-5.4); Lymphocytes % (auto) 5.6 % (10.0-50.0); Mean Corpuscular Hemoglobin 29.3 pg (28.0-32.0); Mean Corpuscular Hgb Conc. 32.4 g/dL (32.0-36.0); Mean Corpuscular Volume 90.4 fL (80.0-100.0); Monocytes # (auto) 0.5 10 ^3/uL (0-1.3); Monocytes % (auto) 7.6 % (0.0-12.0); Neutrophils % (auto) 86.8 % (37.0-80.0); Nucleated Red Blood Cells % 0.1 %; Red Blood Cells 3.79 10^6/uL (4.5-5.90); Red Cell Distribution Width 13.2 % (11.8-14.3)
[2023-10-30 08:08] LABS: Alanine Aminotransferase 52 U/L (7-40); Albumin 4.5 g/dL (3.2-4.8); Alkaline Phosphatase 91 U/L (46-116); Anion Gap 6 (5-15); Aspartate Aminotransferase 22 U/L (13-40); Bilirubin, Total 0.5 mg/dL (0.2-1.0); Calcium 9.9 mg/dL (8.7-10.4); Carbon Dioxide 27 mmol/L (20-30); Chloride 103 mmol/L (98-107); Glucose 126 mg/dL (74-106); Magnesium 2.1 mg/dL (1.6-2.6); Sodium 136 mmol/L (136-145); Total Protein 6.9 g/dL (5.7-8.2)
[2023-10-30 08:19] LABS: Potassium 5.9 mmol/L (3.5-5.1)
[2023-10-30] MEDS: METOPROLOL TARTRATE 1MG/1ML-5ML VIAL IV ONE (08:37)
[2023-10-30] MEDS: DEXTROSE (50%) 50ML SYRG IV ONE (08:46)
[2023-10-30] MEDS: InsuLIN REG 1unit/0.01ml Soln (100units/ml) IV ONE (09:01)
[2023-10-30 09:04] LABS: BUN/Creatinine Ratio 33.1 (10.0-20.0); Blood Urea Nitrogen 50 mg/dL (9-23)
[2023-10-30 11:09] LABS: Chloride 102 mmol/L (98-107); Sodium 135 mmol/L (136-145)
[2023-10-30 11:10] LABS: Anion Gap 9 (5-15); Calcium 9.8 mg/dL (8.7-10.4); Carbon Dioxide 24 mmol/L (20-30)
[2023-10-30 11:15] LABS: BUN/Creatinine Ratio 30.1 (10.0-20.0); Blood Urea Nitrogen 47 mg/dL (9-23); Glucose 217 mg/dL (74-106)
[2023-10-30 11:20] LABS: Potassium 5.7 mmol/L (3.5-5.1)
[2023-10-30] MEDS: SODIUM ZIRCONIUM CYCL 10 GM PAK PO ONE (12:20)
[2023-10-30] MEDS: METOPROLOL TARTRATE 25 MG TAB PO ONE (13:35)
[2023-10-30] MEDS: methylPREDNISolone SOD SUCC 40 MG/ML VL IV SCH (20:57)
[2023-10-30] MEDS ORDERED: METOPROLOL TARTRATE 25 MG TAB PO SCH (22:00)
[2023-10-30] MEDS: METOPROLOL TARTRATE 25 MG TAB PO SCH (23:35)
[2023-10-31] VITALS (18 sets, daily range): BP systolic 116–143; BP diastolic 50–80; PULSE 69–117; RESP 18–26; TEMP 97.6–98.2; O2SAT 96–100
[2023-10-31 06:22] LABS: Basophils # (auto) 0 10 ^3/uL (0-0.2); Eosinophils # (auto) 0 10 ^3/uL (0-0.8); Hematocrit 33.2 % (41.0-53.0); Hemoglobin 10.8 g/dL (13.5-17.5); Lymphocytes # (auto) 0.4 10 ^3/uL (0.4-5.4); Lymphocytes % (auto) 6.8 % (10.0-50.0); Mean Corpuscular Hemoglobin 29.8 pg (28.0-32.0); Mean Corpuscular Hgb Conc. 32.7 g/dL (32.0-36.0); Mean Corpuscular Volume 91.3 fL (80.0-100.0); Monocytes # (auto) 0.3 10 ^3/uL (0-1.3); Monocytes % (auto) 5.8 % (0.0-12.0); Neutrophils # (auto) 5.2 10 ^3/uL (1.6-8.6); Neutrophils % (auto) 87.4 % (37.0-80.0); Nucleated Red Blood Cells % 0.4 %; Red Blood Cells 3.63 10^6/uL (4.5-5.90); Red Cell Distribution Width 13.5 % (11.8-14.3)
[2023-10-31 06:28] LABS: Chloride 102 mmol/L (98-107); Sodium 135 mmol/L (136-145)
[2023-10-31 06:29] LABS: Calcium 9.7 mg/dL (8.7-10.4)
[2023-10-31 06:34] LABS: Blood Urea Nitrogen 47 mg/dL (9-23); Glucose 205 mg/dL (74-106)
[2023-10-31 06:38] LABS: Potassium 5.9 mmol/L (3.5-5.1)
[2023-10-31 08:10] LABS: Anion Gap 5 (5-15); Carbon Dioxide 28 mmol/L (20-30)
[2023-10-31] MEDS: SODIUM ZIRCONIUM CYCL 10 GM PAK PO ONE (10:48)
[2023-10-31] MEDS: FUROSEMIDE 20 MG/2 ML VIAL IV ONE (12:00)
[2023-10-31] MEDS: AMIODARONE HCL 200 MG TAB PO SCH (15:15)
[2023-10-31] MEDS: methylPREDNISolone SOD SUCC 40 MG/ML VL IV SCH (15:15)
[2023-10-31] MEDS: MAGNESIUM SULFATE 1GM/100ML 100 ML IV ONE (23:51)
[2023-11-01] VITALS (23 sets, daily range): BP systolic 104–136; BP diastolic 46–80; PULSE 65–125; RESP 18–25; TEMP 98.4–98.9; O2SAT 97–100
[2023-11-01 06:56] LABS: Basophils # (auto) 0 10 ^3/uL (0-0.2); Basophils % (auto) 0.1 % (0.0-2.0); Chloride 104 mmol/L (98-107); Eosinophils # (auto) 0 10 ^3/uL (0-0.8); Hematocrit 33.8 % (41.0-53.0); Hemoglobin 11.1 g/dL (13.5-17.5); Lymphocytes # (auto) 0.6 10 ^3/uL (0.4-5.4); Mean Corpuscular Hemoglobin 29.7 pg (28.0-32.0); Mean Corpuscular Hgb Conc. 32.7 g/dL (32.0-36.0); Mean Corpuscular Volume 90.6 fL (80.0-100.0); Monocytes # (auto) 0.6 10 ^3/uL (0-1.3); Monocytes % (auto) 8.8 % (0.0-12.0); Neutrophils # (auto) 5.2 10 ^3/uL (1.6-8.6); Neutrophils % (auto) 82.1 % (37.0-80.0); Nucleated Red Blood Cells % 0.4 %; Red Blood Cells 3.73 10^6/uL (4.5-5.90); Red Cell Distribution Width 13.3 % (11.8-14.3); Sodium 135 mmol/L (136-145); White Blood Cell 6.3 10^3/uL (4.4-10.8)
[2023-11-01 06:57] LABS: Anion Gap 4 (5-15); Carbon Dioxide 27 mmol/L (20-30)
[2023-11-01 07:02] LABS: BUN/Creatinine Ratio 31.6 (10.0-20.0); Blood Urea Nitrogen 49 mg/dL (9-23); Glucose 132 mg/dL (74-106)
[2023-11-01 07:09] LABS: Potassium 5.8 mmol/L (3.5-5.1)
[2023-11-01] MEDS: FUROSEMIDE 20 MG/2 ML VIAL IV ONE (08:00)
[2023-11-01] MEDS: SODIUM BICARB 8.4% 50Meq/50ml SYR INJ IV ONE (08:22)
[2023-11-01] MEDS: ALBUTEROL SULF 2.5 MG/0.5ML(0.5%) NEB SOLN NEB ONE (08:29)
[2023-11-01] MEDS: InsuLIN REG 1unit/0.01ml Soln (100units/ml) IV ONE (08:31)
[2023-11-01] MEDS: DEXTROSE (50%) 50ML SYRG IV ONE (08:31)
[2023-11-01 11:58] LABS: Anion Gap 8 (5-15); Carbon Dioxide 25 mmol/L (20-30); Chloride 101 mmol/L (98-107); Potassium 5.3 mmol/L (3.5-5.1); Sodium 134 mmol/L (136-145)
[2023-11-01 11:59] LABS: Calcium 9.2 mg/dL (8.7-10.4)
[2023-11-01 12:04] LABS: BUN/Creatinine Ratio 27.9 (10.0-20.0); Blood Urea Nitrogen 43 mg/dL (9-23); Glucose 156 mg/dL (74-106)
[2023-11-01] MEDS: METOPROLOL TARTRATE 25 MG TAB PO ONE (15:56)
[2023-11-01] MEDS: METOPROLOL TARTRATE 50 MG TAB PO SCH (21:05)
[2023-11-02] VITALS (23 sets, daily range): BP systolic 111–154; BP diastolic 59–77; PULSE 86–124; RESP 16–22; TEMP 97.7–98.1; O2SAT 98–100
[2023-11-02 07:14] LABS: Hematocrit 33.5 % (41.0-53.0); Mean Corpuscular Hemoglobin 30.2 pg (28.0-32.0); Mean Corpuscular Hgb Conc. 32.9 g/dL (32.0-36.0); Mean Corpuscular Volume 91.7 fL (80.0-100.0); Red Blood Cells 3.66 10^6/uL (4.5-5.90); Red Cell Distribution Width 13.6 % (11.8-14.3); White Blood Cell 7.5 10^3/uL (4.4-10.8)
[2023-11-02 07:23] LABS: Anion Gap 5 (5-15); Carbon Dioxide 26 mmol/L (20-30); Chloride 103 mmol/L (98-107); Sodium 134 mmol/L (136-145)
[2023-11-02 07:25] LABS: Calcium 8.8 mg/dL (8.7-10.4)
[2023-11-02 07:29] LABS: BUN/Creatinine Ratio 26.3 (10.0-20.0); Basophils % (manual) 0 (0.0-2.0); Blast Cells 0; Blood Urea Nitrogen 42 mg/dL (9-23); Eosinophils % (manual) 0 (0-7); Glucose 254 mg/dL (74-106); Myelocytes % 0; Promyelocytes % 0; Reactive Lymphocytes 0
[2023-11-02 07:40] LABS: Potassium 5.7 mmol/L (3.5-5.1)
[2023-11-02] MEDS: ALBUTEROL SULF 2.5 MG/0.5ML(0.5%) NEB SOLN NEB ONE (08:55)
[2023-11-02 09:29] LABS: Band Neutrophils % (manual) 9; Lymphocytes % (manual) 8 (10.0-50.0); Metamyelocytes % 1; Monocytes % (manual) 9 (0-12)
[2023-11-02 09:30] LABS: Platelet Estimate Adequate
[2023-11-02] MEDS: DEXTROSE (50%) 50ML SYRG IV ONE (10:22)
[2023-11-02] MEDS: SODIUM BICARB 8.4% 50Meq/50ml SYR INJ IV ONE (10:23)
[2023-11-02] MEDS: FUROSEMIDE 20 MG/2 ML VIAL IV ONE (10:25)
[2023-11-02] MEDS: InsuLIN REG 1unit/0.01ml Soln (100units/ml) IV ONE (10:30)
[2023-11-02] MEDS ORDERED: SODIUM ZIRCONIUM CYCL 10 GM PAK PO SCH (15:15)
[2023-11-02] MEDS: SODIUM ZIRCONIUM CYCL 10 GM PAK PO ONE (17:06)
[2023-11-03] VITALS (23 sets, daily range): BP systolic 108–133; BP diastolic 39–74; PULSE 90–137; RESP 16–22; TEMP 97.5–98; O2SAT 98–100
[2023-11-03 06:24] LABS: Chloride 102 mmol/L (98-107); Sodium 137 mmol/L (136-145)
[2023-11-03 06:25] LABS: Anion Gap 5 (5-15); Carbon Dioxide 30 mmol/L (20-30)
[2023-11-03 06:26] LABS: Calcium 8.8 mg/dL (8.7-10.4)
[2023-11-03 06:30] LABS: BUN/Creatinine Ratio 27.1 (10.0-20.0); Blood Urea Nitrogen 38 mg/dL (9-23); Glucose 209 mg/dL (74-106)
[2023-11-03 06:40] LABS: Potassium 5.6 mmol/L (3.5-5.1)
[2023-11-03 06:45] LABS: Hematocrit 35.9 % (41.0-53.0); Hemoglobin 11.1 g/dL (13.5-17.5); Mean Corpuscular Hemoglobin 28.5 pg (28.0-32.0); Mean Corpuscular Volume 91.8 fL (80.0-100.0); Red Blood Cells 3.91 10^6/uL (4.5-5.90); Red Cell Distribution Width 13.8 % (11.8-14.3); White Blood Cell 11.9 10^3/uL (4.4-10.8)
[2023-11-03 06:50] LABS: Basophils % (manual) 0 (0.0-2.0); Blast Cells 0; Eosinophils % (manual) 0 (0-7); Metamyelocytes % 0; Promyelocytes % 0; Reactive Lymphocytes 0
[2023-11-03] MEDS: ALBUTEROL SULF 2.5 MG/0.5ML(0.5%) NEB SOLN NEB ONE (08:04)
[2023-11-03 08:19] LABS: Band Neutrophils % (manual) 1; Lymphocytes % (manual) 10 (10.0-50.0); Monocytes % (manual) 5 (0-12); Myelocytes % 2
[2023-11-03 08:20] LABS: Platelet Estimate Adequate; RBC Morphology Normal
[2023-11-03] MEDS: DEXTROSE (50%) 50ML SYRG IV ONE (09:00)
[2023-11-03] MEDS: SODIUM BICARB 8.4% 50Meq/50ml SYR INJ IV ONE (09:01)
[2023-11-03] MEDS: FUROSEMIDE 20 MG/2 ML VIAL IV ONE (09:01)
[2023-11-03] MEDS: SODIUM ZIRCONIUM CYCL 10 GM PAK PO ONE (09:02)
[2023-11-03] MEDS: InsuLIN REG 1unit/0.01ml Soln (100units/ml) IV ONE (09:04)
[2023-11-03 14:05] LABS: Chloride 101 mmol/L (98-107); Potassium 5.4 mmol/L (3.5-5.1); Sodium 136 mmol/L (136-145)
[2023-11-03 14:06] LABS: Anion Gap 5 (5-15); Calcium 8.9 mg/dL (8.7-10.4); Carbon Dioxide 30 mmol/L (20-30)
[2023-11-03 14:11] LABS: BUN/Creatinine Ratio 27.8 (10.0-20.0); Blood Urea Nitrogen 40 mg/dL (9-23); Glucose 126 mg/dL (74-106)
[2023-11-03] MEDS: SODIUM ZIRCONIUM CYCL 10 GM PAK PO SCH (14:31)
[2023-11-03] MEDS: FUROSEMIDE 40 MG/4 ML VIAL IV ONE (14:36)
[2023-11-04] VITALS (24 sets, daily range): BP systolic 106–141; BP diastolic 42–67; PULSE 70–134; RESP 18–22; TEMP 97.4–98.1; O2SAT 97–100
[2023-11-04 06:22] LABS: Anion Gap 5 (5-15); Carbon Dioxide 32 mmol/L (20-30); Chloride 101 mmol/L (98-107); Potassium 4.6 mmol/L (3.5-5.1); Sodium 138 mmol/L (136-145)
[2023-11-04 06:23] LABS: Calcium 8.8 mg/dL (8.7-10.4)
[2023-11-04 06:28] LABS: BUN/Creatinine Ratio 26.8 (10.0-20.0); Blood Urea Nitrogen 40 mg/dL (9-23); Glucose 204 mg/dL (74-106); Hematocrit 34.9 % (41.0-53.0); Hemoglobin 11.2 g/dL (13.5-17.5); Mean Corpuscular Volume 90.8 fL (80.0-100.0); Red Blood Cells 3.84 10^6/uL (4.5-5.90); Red Cell Distribution Width 13.9 % (11.8-14.3); White Blood Cell 13.7 10^3/uL (4.4-10.8)
[2023-11-04 06:38] LABS: Basophils % (manual) 0 (0.0-2.0); Blast Cells 0; Eosinophils % (manual) 0 (0-7); Myelocytes % 0; Promyelocytes % 0; Reactive Lymphocytes 0
[2023-11-04] MEDS: FUROSEMIDE 40 MG/4 ML VIAL IV SCH (10:19)
[2023-11-04 10:56] LABS: Band Neutrophils % (manual) 11; Lymphocytes % (manual) 8 (10.0-50.0); Metamyelocytes % 1; Monocytes % (manual) 9 (0-12); Platelet Estimate Adequate
[2023-11-04] MEDS: predniSONE 20 MG TAB PO ONE (17:53)
[2023-11-04] MEDS: AMIODARONE HCL 200 MG TAB PO SCH (17:54)
[2023-11-04] MEDS: FUROSEMIDE 40 MG TAB PO ONE (20:09)
[2023-11-04] MEDS: APIXABAN 5 MG TAB PO SCH (21:59)
[2023-11-05] VITALS (18 sets, daily range): BP systolic 116–134; BP diastolic 41–82; PULSE 66–129; RESP 16–21; TEMP 97.6–98.6; O2SAT 98–100
[2023-11-05 05:50] LABS: Basophils # (auto) 0 10 ^3/uL (0-0.2); Basophils % (auto) 0.2 % (0.0-2.0); Eosinophils # (auto) 0 10 ^3/uL (0-0.8); Hematocrit 36.2 % (41.0-53.0); Hemoglobin 11.9 g/dL (13.5-17.5); Lymphocytes # (auto) 1.2 10 ^3/uL (0.4-5.4); Lymphocytes % (auto) 7.1 % (10.0-50.0); Mean Corpuscular Hemoglobin 29.8 pg (28.0-32.0); Mean Corpuscular Hgb Conc. 32.9 g/dL (32.0-36.0); Mean Corpuscular Volume 90.8 fL (80.0-100.0); Monocytes # (auto) 1.2 10 ^3/uL (0-1.3); Monocytes % (auto) 7.2 % (0.0-12.0); Neutrophils % (auto) 85.5 % (37.0-80.0); Nucleated Red Blood Cells % 0.2 %; Red Blood Cells 3.99 10^6/uL (4.5-5.90); Red Cell Distribution Width 13.8 % (11.8-14.3); White Blood Cell 16.4 10^3/uL (4.4-10.8)
[2023-11-05 06:06] LABS: Anion Gap 4 (5-15); Carbon Dioxide 37 mmol/L (20-30); Chloride 96 mmol/L (98-107); Potassium 4.5 mmol/L (3.5-5.1); Sodium 137 mmol/L (136-145)
[2023-11-05 06:07] LABS: Calcium 8.8 mg/dL (8.7-10.4)
[2023-11-05 06:12] LABS: BUN/Creatinine Ratio 35.3 (10.0-20.0); Blood Urea Nitrogen 48 mg/dL (9-23); Glucose 164 mg/dL (74-106)
[2023-11-05] MEDS: FUROSEMIDE 40 MG TAB PO SCH (09:35)
[2023-11-05] MEDS: predniSONE 20 MG TAB PO SCH (09:36)
[2023-11-05] MEDS: EMPAGLIFLOZIN 10 MG TAB PO SCH (11:03)
[2023-11-05] MEDS: ONDANSETRON HCL 4 MG/2 ML VIAL IV PRN (22:51)
[2023-11-06] VITALS (17 sets, daily range): BP systolic 112–142; BP diastolic 46–75; PULSE 57–120; RESP 16–21; TEMP 97.9–98.3; O2SAT 95–100
[2023-11-06] MEDS: LIDOCAINE VISCOUS 2% 15ML UD MT ONE (17:07)
[2023-11-06] MEDS: PANTOPRAZOLE 40 MG/10 ML VIAL INJ IV ONE (17:07)
[2023-11-06] MEDS: SUCRALFATE 1 GM/10 ML ORAL SUSP PO ONE (20:58)
[2023-11-06] MEDS ORDERED: LIDOCAINE VISCOUS 2% 15ML UD MT PRN (21:00)
[2023-11-06] MEDS: MORPHINE SULFATE INJ 2 MG/ml SYRG IV PRN (21:00)
[2023-11-06] MEDS: SUCRALFATE 1 GM/10 ML ORAL SUSP PO SCH (22:00)
[2023-11-07] VITALS (11 sets, daily range): BP systolic 106–127; BP diastolic 46–65; PULSE 54–73; RESP 16–20; TEMP 97.6–98.7; O2SAT 94–100
[2023-11-07 05:36] LABS: Hemoglobin 12.4 g/dL (13.5-17.5); Mean Corpuscular Hemoglobin 30.3 pg (28.0-32.0); Mean Corpuscular Hgb Conc. 33.4 g/dL (32.0-36.0); Mean Corpuscular Volume 90.7 fL (80.0-100.0); Red Blood Cells 4.08 10^6/uL (4.5-5.90); Red Cell Distribution Width 14.7 % (11.8-14.3); White Blood Cell 19.9 10^3/uL (4.4-10.8)
[2023-11-07 05:45] LABS: Basophils % (manual) 0 (0.0-2.0); Blast Cells 0; Promyelocytes % 0
[2023-11-07 06:49] LABS: Band Neutrophils % (manual) 7; Eosinophils % (manual) 1 (0-7); Lymphocytes % (manual) 17 (10.0-50.0); Metamyelocytes % 1; Monocytes % (manual) 9 (0-12); Myelocytes % 2; Platelet Estimate Decreased; Reactive Lymphocytes 1
[2023-11-07 06:54] LABS: Anion Gap 1 (5-15); Carbon Dioxide 40 mmol/L (20-30); Chloride 98 mmol/L (98-107); Potassium 4.9 mmol/L (3.5-5.1); Sodium 139 mmol/L (136-145)
[2023-11-07 06:55] LABS: Calcium 9.3 mg/dL (8.7-10.4)
[2023-11-07 07:00] LABS: BUN/Creatinine Ratio 29.7 (10.0-20.0); Blood Urea Nitrogen 46 mg/dL (9-23); Glucose 94 mg/dL (74-106)
[2023-11-07 07:01] LABS: Magnesium 1.7 mg/dL (1.6-2.6)
[2023-11-07] MEDS: PANTOPRAZOLE 40 MG/10 ML VIAL INJ IV SCH (09:22)
[2023-11-07] MEDS: AMIODARONE HCL 200 MG TAB PO SCH (09:24)
[2023-11-07] MEDS ORDERED: EMPA1TAB PO (13:07)
[2023-11-07] MEDS ORDERED: METH5TAB98 PO (13:07)
[2023-11-07] MEDS ORDERED: FURO40TA4 PO (13:07)
[2023-11-07] MEDS ORDERED: APIX5TAB PO (13:07)
[2023-11-07] MEDS ORDERED: SUCR1SUS26 PO (13:07)
[2023-11-07] MEDS ORDERED: PANT40TA2 PO (13:07)
== END 2023-11-07 14:10 | disposition home or self-care (01) | DRG 137 ==
LOC: ER 17:59 → TELE 22:51 → TELE-WESTW 10-27 08:41
PROVIDERS: ADMIT Internal Medicine Pulmonary Disease; ATTEND Internal Medicine Pulmonary Disease
PROC: 05HA33Z Insertion of Infusion Device into Left Brachial Vein, Percutaneous Approach (ICD-10-PCS; principal; 2023-10-29)
PROC: B54NZZA Ultrasonography of Left Upper Extremity Veins, Guidance (ICD-10-PCS; 2023-10-29)
DX: J15.69 Pneumonia due to other Gram-negative bacteria (principal); N17.0 Acute kidney failure with tubular necrosis; J96.21 Acute and chronic respiratory failure with hypoxia; J44.1 Chronic obstructive pulmonary disease with (acute) exacerbation; I50.43 Acute on chronic combined systolic (congestive) and diastolic (congestive) heart failure; I27.20 Pulmonary hypertension, unspecified; I13.0 Hypertensive heart and chronic kidney disease with heart failure and stage 1 through stage 4 chronic kidney disease, or unspecified chronic kidney disease; J15.9 Unspecified bacterial pneumonia; I48.19 Other persistent atrial fibrillation; E05.90 Thyrotoxicosis, unspecified without thyrotoxic crisis or storm; E87.5 Hyperkalemia; R13.10 Dysphagia, unspecified; N18.9 Chronic kidney disease, unspecified; J44.0 Chronic obstructive pulmonary disease with (acute) lower respiratory infection; E78.5 Hyperlipidemia, unspecified; Z80.1 Family history of malignant neoplasm of trachea, bronchus and lung; Z99.81 Dependence on supplemental oxygen; Z88.1 Allergy status to other antibiotic agents; Z88.0 Allergy status to penicillin
CPT/HCPCS: 36415; 71045; 76881; 80048; 80053; 82962; 83036; 83735; 83880; 84436; 84439; 84443; 84481; 84484; 85007; 85025; 85027; 85379; 93005; 93306; 93970; 94640; 97110; 97116; 97163; 97530; G0378; J1100; J1815; J2405; J2470; J3490